=== PATIENT | male | born 1955 | race Caucasian/White ===

== ENCOUNTER → 2016-10-24 | Outpatient (CLI) | payer OTHER ==
--- NOTE | 2016-10-24 13:31 | RAD ---
MR THORACIC SPINE HISTORY: RIGHT SIDED MID BACK PAIN X 5 MONTHS AFTER AWKWARD TWISTING, NO SX HX, NO PRIORS Reason: MRSPTWO/R SIDE THORACIC BACK PAIN / Spl. Instructions: / History: Technique: Sagittal T2, sagittal STIR, sagittal T1, and axial gradient echo imaging was obtained of the thoracic spine. FINDINGS: Vertebral body height and alignment is maintained throughout the thoracic spine. There is a normal thoracic kyphosis. No abnormal bone marrow signal seen. The canal is patent throughout. The cord is of normal caliber without abnormal signal. At T4-5, there is a small disc protrusion but this does not cause mass effect upon the cord. There is mild degenerative disc height loss noted at several levels but no severe disc height loss is appreciated. Paraspinous soft tissues are within normal limits. Visualized intrathoracic contents are unremarkable. IMPRESSION: - No compression fracture or malalignment. No cord signal abnormality or spinal stenosis. Electronically signed by: Serg Alfonso (Oct 24, 2016 13:30:21)
== END | disposition home or self-care (01) ==
LOC: MRI 10:34
PROVIDERS: ATTEND General Practice
DX: M54.6 Pain in thoracic spine (principal)
CPT/HCPCS: 72146

== ENCOUNTER → 2016-11-24 | Outpatient (CLI) | payer OTHER ==
[~2016-11-24] MED LIST: BUPIVACAINE MPF 0.25% 10 ML VIAL. ONE; IOHEXOL 180 MG/ML 10 ML VIAL. ONE; methylPREDNISolone ACETATE 40 MG/ML VIAL. ONE; methylPREDNISolone ACETATE 80 MG/ML VIAL. ONE; no medications
--- NOTE | 2016-11-25 01:09 | PAIN ---
DATE OF SERVICE: INITIAL CONSULTATION FOR PAIN CLINIC. CHIEF COMPLAINT: Low back, right lower extremity pain. HISTORY OF PRESENT ILLNESS: The patient is a 61-year-old male with history of pain since 06/10/2016, was injured at work while lifting a heavy bin of parts and twisting to his right side. He sneezed same time and felt a terrible stinging sharp pain like a cramps in his right low back into the right lateral thigh. The patient reports that since that time, he has done some physical therapy as well as chiropractic treatment and exercises on his own, which has helped the pain by about 50%, but is still significantly present with extension of the spine as well as rotating to the right side with any repetitive fashion. The patient has been unable to return to work as had been unable to accommodate his restrictions in his activity with his duties. The patient reports it is constant, sharp, stabbing at this time, intermittent in intensity, but always present, changes during the day, worse with standing and walking, extension and right rotation of the lumbar spine, tingling and numbness as well in the right leg, mostly in the lateral aspect in the anterior thigh and lateral thigh with numbness and tingling, worse with standing, worse with walking, bending or stooping as well as especially rotating to the right side while standing. He is unable to sleep on his right side. It awakens him from sleep at least twice a night if he is sleepy on the right side. The patient reports it does not affect his bowel or bladder control or his ability to walk significantly, but is very tender. The patient reports his disability rate from 0-10, 10 being the worst and 3 with family and home responsibilities, recreation, social activities, sexual behavior, 1 with self-care and life support activities. The patient did have an MRI scan, but it was of the thoracic spine, it was essentially normal. He has not had any lumbar MRI studies done at this time. The patient reports no loss of motor function, but significant fatigability with standing and rotating to the right side with his right leg. No symptoms on the left side. PAST MEDICAL HISTORY: Significant for seasonal sinus congestion and allergies, previous cholecystectomy, otherwise, the patient has been in good health. CURRENT MEDICATIONS: The patient is taking no prescription medications currently. He did try some Meloxicam in the past, also has tried [id number] Advil, Motrin and Tylenol, which were helpful by only about 20%. ALLERGIES: The patient has no known drug allergies. FAMILY HISTORY: Significant for no major medical problems or conditions he is aware of. SOCIAL HISTORY: The patient reports he drinks about 2 alcoholic beverages a week, does not smoke. 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 REVIEW OF SYSTEMS: The patient's review of systems is positive for those items mentioned in history of present illness. Otherwise, is complete, full and well documented on the patient's chart. All systems reviewed and otherwise negative. PHYSICAL EXAMINATION: VITAL SIGNS: The patient's blood pressure is 155/97, pulse 67, respirations 18, temperature is 98.9 degrees Fahrenheit. Height 6 feet, weight is 253 pounds. GENERAL: The patient is awake, alert, oriented, appropriate, very pleasant demeanor. HEENT: Head shows normocephalic, atraumatic. Extraocular movements are intact and symmetrical. Shows full catalan and moustache. Oral cavity, mucous membranes are moist and pink. Dentition is intact. NECK: Shows anterior throat supple without palpable lymphadenopathy noted. Swallow reflex is symmetrical. Neck shows full rotational motion of the cervical spine without difficulty or tenderness including extension and flexion. CHEST: Shows normal on inspection. Breath sounds clear to auscultation bilaterally. HEART: Shows S1 and S2 clear. ABDOMEN: Obese but soft, nontender, and nondistended. No palpable organomegaly. There is no rebound or guarding demonstrated. BACK: Shows spine grossly midline. Normal appearing thoracic kyphosis and lumbar lordotic curvature in midline spine. Lumbar paraspinous musculature shows symmetrical on inspection with palpation, shows some moderate tenderness in the right low distribution of the lumbar paraspinous musculature, only diffusely, but very tender with deep palpation in this region and none on the left side. The patient shows full rotational motion of lumbar spine with tenderness with extension and right rotation, but not with left. The patient does rotate right and left laterally greater than 10 degrees, extension greater than 10 degrees, forward flexion 45 degrees, again with pain reported with extension and right lateral rotation only. The patient's lower extremities show deep tendon reflexes at 2+ in the patellar, 1+ tendo-calcaneus tendons are equal. Motor exam is strong with 5/5 dorsiflexion, extension, quadriceps and hamstring flexion and are symmetrical. Straight leg raising will be negative for reproduction of radicular symptoms at this time. Gaenslen's and Jace's maneuvers are negative for reproduction of pain as well bilaterally. Peripheral pulses are 2+ in the posterior tibial and dorsalis pedis pulses. No peripheral edema is noted. No clubbing, no cyanosis. Lower extremities are warm and dry to touch, equal in color and appearance. The patient is able to stand, stand on his toes without difficulty or loss of balance, able to heel-to-toe walk for several steps without difficulty as well. IMPRESSION: 1. This is a 61-year-old male with history of injury at work on 06/10/2016 with pain in low back, right lower extremity, improved with physical therapy and chiropractic treatment; however, still significant with some radiating pain in the right leg is noted. 2. History of low back pain in the past without radicular component. PLAN: Options were discussed with the patient including conservative medical management, physical therapy, and interventional technique. He would like to pursue interventional techniques. We discussed right-sided lumbar facet joint injections at L4-L5 and L5-S1 levels using description as well as anatomical models to describe the procedure. The patient would like to proceed with this. Risks were then discussed including, but not limited to bleeding, infection, possibility of epidural hematoma, subsequent neurologic compromise, dural punctures, headaches, spinal cord and/or nerve damage, side effects of steroid medication and poor results regarding pain control. The patient understands and wishes to proceed. The patient will return to clinic in approximately 2 weeks for followup, was counseled on return appointment, activity level and side effects to be aware of. DIAGNOSIS: Low back pain with lumbar spondylosis. PROCEDURE: Right-sided L4-L5 and L5-S1 facet joint injections with C-arm fluoroscopic guidance under sterile prep and drape using local anesthetic. MEDICATION INJECTED: Depo-Medrol 120 mg total plus 2 mL of 0.25% bupivacaine and 1 mL of Isovue for contrast. CONDITION AT DISCHARGE: Stable. The patient tolerated procedure well, had no complications. VASILIY SNOW MD DR: SYDNEY/stephanie JOB#: [id number] / [id number] JAMES Durham DO
== END | disposition home or self-care (01) ==
LOC: PNCL 07:53
PROVIDERS: ATTEND Anesthesiology
DX: M47.816 Spondylosis without myelopathy or radiculopathy, lumbar region (principal); Z72.89 Other problems related to lifestyle; Z90.49 Acquired absence of other specified parts of digestive tract
CPT/HCPCS: 64493; 64494; J1030; J1040; J3490

== ENCOUNTER → 2016-12-15 | Outpatient (CLI) | payer OTHER ==
--- NOTE | 2016-12-16 00:33 | PAIN ---
DATE OF SERVICE: 12/15/2016 PROGRESS NOTE FOR PAIN CLINIC DIAGNOSIS: Low back pain with lumbar spondylosis. HISTORY OF PRESENT ILLNESS: The patient is a 61-year-old male who returns for followup status post right-sided L4-L5 and L5-S1 lumbar facet joint injections on 11/14/2016. The patient did very well. The patient reports he had significant pain reduction about 75% for the first few days, but after about a week, the pain returned with a pulling sensation and aching in the right low back. The patient also reports pain into the left leg, especially into the foot and lower leg, which feels bruised in sensation, but is on the left side as well. The patient reports no new motor or sensory deficits, no new bowel or bladder incontinence or other complaints. The patient reports pain is a 3 on a scale of 10, reports he cannot get a comfortable position, is waking him up from sleep, again on the right side, also some on the right lateral thigh with radiation to the anterior aspect of the thigh to the knee on the right side. The patient reports otherwise doing well. No new changes. PHYSICAL EXAMINATION: VITAL SIGNS: The patient's blood pressure is 156/95, pulse is 59, respirations are 18, temperature 98.2 degrees Fahrenheit. Height is 6 feet, weight is 253 pounds. GENERAL: The patient is awake, alert, oriented, appropriate, has a very pleasant demeanor. HEENT: Shows normocephalic, atraumatic. Extraocular movements are intact and symmetrical. Oral cavity, mucous membranes are moist and pink. Dentition is intact. NECK: Shows anterior throat supple without palpable lymphadenopathy noted. Swallow reflex is symmetrical. CHEST: Shows normal on inspection. Breath sounds are clear to auscultation bilaterally. HEART: Shows S1 and S2 clear. ABDOMEN: Soft, nontender, nondistended. BACK: Shows spine grossly in the midline. Lumbar paraspinous muscle shows some [id number] tenderness, more on the right side than the left with palpation, but without significant radiation and is without significant atrophy, hypertrophy or asymmetry. The patient's lower extremities show deep tendon reflexes at 2+ in the patellar and tendo calcaneus tendons, are 1+ bilaterally. Motor exam is strong with 5/5 dorsiflexion and extension as well as quadriceps and hamstring flexion and equal bilaterally. The patient's back shows again some mild pain with extension, but not with forward flexion and with right lateral rotation only on the right side. PLAN: Options were discussed with the patient. We will proceed with a repeat right-sided L4-L5 and L5-S1 facet joint injections with fluoroscopic guidance. Risks were again discussed including, but not limited to bleeding, infection, possibility of intravascular injection sequelae, epidural hematoma, subsequent neurological compromise, dural punctures, headaches, spinal cord and/or nerve damage, side effects of steroid medication and poor results regarding pain control. The patient understands and wishes to proceed. The patient will return to clinic in approximately 2 weeks for followup, was counseled on return appointment, activity level and side effects to be aware of. We also discussed that if the patient did not have significant improvement, we would check MRI scan of the lumbar spine as he only had a thoracic spine MRI scan performed and this may be of some benefit to explain some of his radicular qualities that he has in the pain as well as in the right and left lower extremities. DIAGNOSIS: Low back pain with lumbar spondylosis. PROCEDURE: Right-sided L4-L5 and L5-S1 facet joint injections with fluoroscopic guidance using local anesthetic under sterile prep and drape. MEDICATIONS INJECTED: A total of 2 mL of 0.25% bupivacaine, 1 mL total of Isovue contrast and 120 mg total of Depo-Medrol. CONDITION AT DISCHARGE: Stable. The patient tolerated procedure the well, had no complications. VASILIY SNOW MD DR: SYDNEY/stephanie JOB#: [id number] / [id number]
== END | disposition home or self-care (01) ==
LOC: PNCL 07:52
PROVIDERS: ATTEND Anesthesiology
DX: M47.816 Spondylosis without myelopathy or radiculopathy, lumbar region (principal)
CPT/HCPCS: 64493; 64494; J1030; J1040; J3490

== ENCOUNTER → 2016-12-30 | Outpatient (CLI) | payer OTHER ==
[~2016-12-30] MED LIST changes: -BUPIVACAINE MPF 0.25% 10 ML VIAL. ONE; -IOHEXOL 180 MG/ML 10 ML VIAL. ONE; -methylPREDNISolone ACETATE 40 MG/ML VIAL. ONE; -methylPREDNISolone ACETATE 80 MG/ML VIAL. ONE
--- NOTE | 2016-12-30 09:29 | KCIC ---
PROCEDURE MRI lumbar spine without contrast. HISTORY Right lumbar radiculopathy, low back pain with right hip pain since May 2016, injury with pulling and twisting at work TECHNIQUE Multiplanar, multi sequential, noncontrast MR imaging was performed of the lumbar spine. COMPARISON None FINDINGS Lumbar vertebral body stature and AP alignment are maintained. Conus terminates at the inferior aspect of T12. There is mild degenerative disc disease at L4-5, mild disc desiccation L1-2 through L3-4. There are anterior annular tears L1-L2 through L3-4, posterior annular tear L4-5. There is no significant marrow edema. L1-2: Spinal canal and the neural foramina are adequate. There is negligible disc osteophyte complex. L2-3: There is negligible disc osteophyte complex. Spinal canal and neural foramina are adequate. L3-4: There is negligible disc osteophyte complex. Spinal canal and neural foramina are adequate. L4-5: There is mild facet degenerative change. There is negligible disc osteophyte complex. There is very minimal narrowing of the right neural foramen, left neural foramen adequate. Spinal canal is overall adequate. L5-S1: Neural foramina and spinal canal are adequate. IMPRESSION There is mild degenerative disc disease at L4-5, mild disc desiccation at more superior levels. There are annular tears as stated. There is no significant lumbar spinal stenosis or neural foramina compromise. There is very mild multilevel spondylosis. Electronically signed by: Hubert Thomson MD (Dec 30, 2016 09:27:46)
== END | disposition home or self-care (01) ==
LOC: KCIC MRI 08:20
PROVIDERS: ATTEND Anesthesiology
DX: M51.16 Intervertebral disc disorders with radiculopathy, lumbar region (principal)
CPT/HCPCS: 72148

== ENCOUNTER → 2017-03-05 | Outpatient (CLI) | payer OTHER ==
[~2017-03-05] MED LIST changes: +BUPIVACAINE MPF 0.25% 10 ML VIAL. ONE; +IOHEXOL 180 MG/ML 10 ML VIAL. ONE; +methylPREDNISolone ACETATE 40 MG/ML VIAL. ONE; +methylPREDNISolone ACETATE 80 MG/ML VIAL. ONE
--- NOTE | 2017-03-06 01:46 | PAIN ---
DATE OF SERVICE: 03/05/2017 PROGRESS NOTE FOR PAIN CLINIC DIAGNOSIS: Lumbar spondylosis with low back pain. HISTORY OF PRESENT ILLNESS: The patient is a 62-year-old male who returns for followup status post lumbar facet joint injections on the right at L4-L5 and L5-S1 x2. Last seen 12/15/2016, the patient reports about 75% improvement after the last injections again reproducing this from his previous injections in October. We did do an MRI scan of the lumbar spine showing only some minor degenerative disk changes at L4-L5. The patient reports no new changes, still significant pain in the right side of the low back, worse with standing, extension of the spine, kneeling or sitting upright. It is aching, tingling, burning and stabbing pain, can be severe as well. The patient reports it is a 5 on a scale of 10, gets worse. He had an episode about a week ago with pain significantly increased and scheduled this appointment today. The patient reports no new motor or sensory deficits, no new bowel or bladder incontinence, but does have significant pain in the right low back with some radiation into the lateral and anterior thigh on occasion. PHYSICAL EXAMINATION: VITAL SIGNS: Today, the patient's blood pressure is 140/97, pulse 57, respirations 18, temperature 98.1 degrees Fahrenheit, height is 6 feet, weight is 246 pounds. GENERAL: The patient is awake, alert, oriented, appropriate, has very pleasant demeanor. HEENT: Head shows normocephalic, atraumatic. Extraocular movements are intact and symmetrical. Oral cavity, his mucous membranes are moist and pink. Dentition is intact. NECK: Shows anterior throat supple without palpable lymphadenopathy noted. Swallow reflex is symmetrical. CHEST: Shows normal on inspection. Breath sounds clear to auscultation bilaterally. HEART: Shows S1 and S2 clear. ABDOMEN: Soft, nontender, nondistended. No palpable organomegaly. There is no new rebound or guarding demonstrated. BACK: The patient's back shows spine grossly in the midline. Lumbar paraspinous musculature is symmetrical with palpation, shows some moderate tenderness to palpation mainly only on the right side with deep palpation without atrophy, hypertrophy or asymmetry. The patient does show pain with extension of the spine at 10 degrees, but not with forward flexion. Right or left lateral rotation is equivocal. Lower extremities show deep tendon reflexes 2+ in the patellar and 1+ tendo calcaneus tendons. Motor exam is strong with 5/5 dorsiflexion, extension and equal. Options were discussed with the patient. The patient's old chart was reviewed as his current medication regimen and updated. Current review of systems updated today as well. We will proceed with the right-sided L4-L5 and L5-S1 facet joint injections. Risks were again discussed including, but not limited to bleeding, infection, possibility of epidural hematoma and subsequent neurologic compromise, dural puncture, headaches, spinal cord and/or nerve damage, side effects of steroid medication and poor results regarding pain control. The patient understands and wished to proceed. The patient will return to clinic in approximately 2 weeks for followup. He was counseled as to return appointment, activity level and side effects to be aware of. DIAGNOSIS: Lumbar spondylosis with low back pain. PROCEDURE: Right-sided L4-L5 and L5-S1 facet joint injections with fluoroscopic guidance under sterile prep and drape using a local anesthetic. MEDICATIONS INJECTED: Is total of 80 mg Depo-Medrol plus total of 2 mL of 0.25% bupivacaine and a total of 1 mL of Isovue for contrast. CONDITION AT DISCHARGE: Stable. The patient tolerated the procedure well, had no complications. VASILIY SNOW MD DR: SYDNEY/stephanie JOB#: [id number] / [id number]
== END | disposition home or self-care (01) ==
LOC: PNCL 08:32
PROVIDERS: ATTEND Anesthesiology
DX: M47.816 Spondylosis without myelopathy or radiculopathy, lumbar region (principal)
CPT/HCPCS: 64493; 64494; J1040; J3490; J1030